=== PATIENT | male | born 1980 | race Two or more races ===

== ENCOUNTER 2017-11-03 14:29 | Emergency (ER) | payer MEDICAID ==
[~2017-11-03] VITALS: Ht 177.8 cm; Wt 76.9 kg
[2017-11-03] MEDS ORDERED: TRAM50TA2 PO (15:07)
[2017-11-03] MEDS ORDERED: TOPI50TA8 PO (15:07)
[2017-11-03] MEDS ORDERED: CLON0.5T20 PO (15:07)
[2017-11-03] MEDS ORDERED: DIVA250T6 PO (15:07)
[2017-11-03] MEDS ORDERED: BUPR100T8 PO (15:07)
[2017-11-03] MEDS ORDERED: DIVA-68 PO (15:07)
[2017-11-03] MEDS ORDERED: ATEN50TA41 PO (15:07)
[2017-11-03] MEDS ORDERED: LORazepam 1MG TABLET PO PRN (15:30)
[2017-11-03 15:31] LABS: BASOPHILS # (AUTO) 0.07 x10^3/uL (0-0.1); BASOPHILS % (AUTO) 1 % (0-1); EOSINOPHILS # (AUTO) 0.01 x10^3/uL (0-0.4); EOSINOPHILS % (AUTO) 0 % (1-7); LYMPHOCYTES # (AUTO) 2.04 x10^3/uL (1-3.4); LYMPHOCYTES % (AUTO) 20 % (22-44); MD NO; MEAN CORPUSCULAR HEMOGLOBIN 33.2 pg (27.5-34.5); MEAN CORPUSCULAR HGB CONC 34.5 g/dL (33.2-36.2); MEAN CORPUSCULAR VOLUME 96.2 fL (81-97); MONOCYTES # (AUTO) 0.45 x10^3/uL (0.2-0.8); MONOCYTES % (AUTO) 4 % (2-9); NEUTROPHILS % (AUTO) 75 % (42-75); PLATELET COUNT 237 x10^3/uL (130-400)
[2017-11-03 15:38] LABS: ALANINE AMINOTRANSFERASE 36 U/L (12-78); ALBUMIN 4.2 g/dL (3.4-5.0); ANION GAP 11 mmol/L (5-15); CALCIUM 9.9 mg/dL (8.5-10.1); CHLORIDE 106 mmol/L (98-107); CREATININE 1.27 mg/dL (0.7-1.3); SALICYLATE LEVEL 1.9 mg/dL (2.8-20.0)
[2017-11-03 15:43] LABS: ALKALINE PHOSPHATASE 129 U/L (45-117); TOTAL PROTEIN 8.1 g/dL (6.4-8.2); TROPONIN I < 0.015 ng/mL (0.000-0.045)
[2017-11-03 15:44] LABS: ACETAMINOPHEN < 2 mcg/mL (10-30)
[2017-11-03 15:45] LABS: AMPHETAMINE SCREEN, URINE Negative (Negative); BARBITURATE SCREEN, URINE Negative (Negative); BENZODIAZEPINE SCREEN, URINE Negative (Negative); CANNABINOID SCREEN, URINE Negative (Negative); COCAINE SCREEN, URINE Negative (Negative); METHADONE SCREEN, URINE Negative (Negative); OPIATE SCREEN, URINE Negative (Negative)
[2017-11-03 17:06] VITALS: BP 145/86
== END 2017-11-03 18:03 | disposition home or self-care (01) ==
LOC: ED 16:39
DX: G40.909 Epilepsy, unspecified, not intractable, without status epilepticus (principal); F31.9 Bipolar disorder, unspecified; R07.9 Chest pain, unspecified; R06.02 Shortness of breath; I25.2 Old myocardial infarction; F17.200 Nicotine dependence, unspecified, uncomplicated; Z76.0 Encounter for issue of repeat prescription
CPT/HCPCS: 36415; 71045; 80053; 80164; 80307; 80329; 84484; 85025; 93005; 99285; G0480

== ENCOUNTER 2018-12-01 18:30 | Emergency (ER) | payer MEDICAID ==
[~2018-12-01] VITALS: Ht 172.7 cm; Wt 82.0 kg
[~2018-12-01 18:30] MED LIST: ATEN50TA41 PO; BUPR100T8 PO; CLON0.5T20 PO; DIVA-59 PO; DIVA-61 PO; TOPI50TA8 PO; TRAM50TA2 PO
--- NOTE | 2018-12-01 18:56 | NUR ---
PT REPORT FROM ASHLEY DICKERSON. PT CARE TO BE ASSUMED.
[2018-12-01] MEDS ORDERED: SODIUM CHLORIDE FLUSH 10ML SYR IVF ONE (19:00)
--- NOTE | 2018-12-01 19:04 | NUR ---
EKG DONE. LABS DRAWN. EMS IV INFUSING W-O, IV 18G LAC - SITE PATENT. PT C/O BACK PAIN R/T RECENT BACK SURGERY. ADMITS HE WAS SEEN AT [facility] YESTERDAY & DID NOT FILL CLONOPIN RX. STATES HE HASN'T TAKEN ANY OF HIS MEDS.
[2018-12-01 19:09] LABS: BASOPHILS # (AUTO) 0.02 x10^3/uL (0-0.1); BASOPHILS % (AUTO) 0 % (0-1); EOSINOPHILS % (AUTO) 0 % (1-7); LYMPHOCYTES # (AUTO) 1.97 x10^3/uL (1-3.4); LYMPHOCYTES % (AUTO) 17 % (22-44); MD NO; MEAN CORPUSCULAR HEMOGLOBIN 32.9 pg (27.5-34.5); MEAN CORPUSCULAR VOLUME 96.8 fL (81-97); MEAN PLATELET VOLUME 8.4 fL (7.4-10.4); MONOCYTES # (AUTO) 0.13 x10^3/uL (0.2-0.8); MONOCYTES % (AUTO) 1 % (2-9); NEUTROPHILS # (AUTO) 9.64 x10^3/uL (1.8-6.8); NEUTROPHILS % (AUTO) 82 % (42-75); PLATELET COUNT 243 x10^3/uL (130-400); RED BLOOD COUNT 5.12 x10^6/uL (4.38-5.82); RED CELL DISTRIBUTION WIDTH 13.9 % (9.4-14.8)
[2018-12-01] MEDS ORDERED: HYDR25TA6 PO (19:13)
[2018-12-01] MEDS ORDERED: CARB200T4 PO (19:13)
[2018-12-01] MEDS ORDERED: ATEN25TA PO (19:13)
[2018-12-01] MEDS ORDERED: CLON1TAB11 PO (19:13)
[2018-12-01] MEDS ORDERED: RISP2TAB3 PO (19:13)
[2018-12-01] MEDS ORDERED: VILA40TA PO (19:13)
[2018-12-01] MEDS ORDERED: LISI10TA2 PO (19:13)
[2018-12-01] MEDS ORDERED: ONDA4TAB12 PO (19:13)
--- NOTE | 2018-12-01 19:13 | NUR ---
EXTERNAL MED HX REVIEWED; MED REC UPDATED.
--- NOTE | 2018-12-01 19:20 | NUR ---
EMS NS LITER INFUSED.
[2018-12-01 19:22] LABS: ALANINE AMINOTRANSFERASE 114 U/L (12-78); ALBUMIN 3.8 g/dL (3.4-5.0); ANION GAP 17 mmol/L (5-15); CALCIUM 9.3 mg/dL (8.5-10.1); CHLORIDE 108 mmol/L (98-107); CREATININE 1.47 mg/dL (0.7-1.3)
[2018-12-01 19:24] LABS: ALKALINE PHOSPHATASE 140 U/L (45-117); BILIRUBIN,TOTAL 0.4 mg/dL (0.2-1.0); TOTAL PROTEIN 7.6 g/dL (6.4-8.2)
--- NOTE | 2018-12-01 19:33 | NUR ---
GLYCERIN SWABS PROVIDED, PER PT REQUEST.
--- NOTE | 2018-12-01 19:35 | NUR ---
TO CT PER ANGELICA
[2018-12-01] MEDS ORDERED: OMNIPAQUE 350 MG/ML, 100ML BOTTLE ONE (19:55)
[2018-12-01 20:06] LABS: MICROSCOPIC AUTO
[2018-12-01 20:08] LABS: CULTURE INDICATED? NO
[2018-12-01 21:07] VITALS: BP 139/89
== END 2018-12-01 21:10 | disposition home or self-care (01) ==
LOC: ED 21:04
DX: R19.7 Diarrhea, unspecified (principal); R10.30 Lower abdominal pain, unspecified; I25.2 Old myocardial infarction; F41.1 Generalized anxiety disorder; F32.9 Major depressive disorder, single episode, unspecified; F17.200 Nicotine dependence, unspecified, uncomplicated
CPT/HCPCS: 36415; 74177; 80053; 81001; 83690; 85025; 93005; 99284; Q9967

== ENCOUNTER 2018-12-01 22:07 | Emergency (ER) | payer MEDICAID ==
[~2018-12-01] VITALS: Ht 172.7 cm; Wt 78.0 kg
[~2018-12-01 22:07] MED LIST changes: +ATEN25TA PO; +CARB200T4 PO; +CLON1TAB11 PO; +HYDR25TA6 PO; +LISI10TA2 PO; +ONDA4TAB12 PO; +RISP2TAB3 PO; +VILA40TA PO
[2018-12-01 22:10] VITALS: BP 132/79
--- NOTE | 2018-12-01 22:16 | NUR ---
ASSESMENT MADE. ERP AT BEDSIDE.
--- NOTE | 2018-12-01 22:23 | NUR ---
PATIENT SEEN AT [facility] YESTERDAY FOR PSYCH EVALUATION AND MEDICATION REFILL AND WAS DC'D.
--- NOTE | 2018-12-01 22:30 | NUR ---
PATIENT DISCHARGED WITH INSTRUCTION. VERBALIZED UNDERSTANDING.
== END 2018-12-01 22:42 | disposition home or self-care (01) ==
LOC: ED 22:32
DX: F32.9 Major depressive disorder, single episode, unspecified (principal); R45.851 Suicidal ideations; F41.1 Generalized anxiety disorder; I25.2 Old myocardial infarction; F17.200 Nicotine dependence, unspecified, uncomplicated; Z72.9 Problem related to lifestyle, unspecified; Z75.9 Unspecified problem related to medical facilities and other health care; Z91.14 Patient's other noncompliance with medication regimen; Z63.8 Other specified problems related to primary support group
CPT/HCPCS: 99284